=== PATIENT | female | born 1945 | race Caucasian/White ===

== ENCOUNTER 2017-06-12 08:13 | Emergency (ER) | payer MEDICARE ==
[~2017-06-12] VITALS: Ht 160 cm; Wt 80.0 kg
[2017-06-12] MEDS ORDERED: NAPR220C2 PO (08:27)
[2017-06-12] MEDS ORDERED: GLUC1CAP48 PO (08:27)
[2017-06-12] MEDS ORDERED: HYDR-882 PO (08:27)
[2017-06-12] MEDS ORDERED: ASPI-496 PO (08:27)
[2017-06-12] MEDS ORDERED: POTA20TA6 PO (08:27)
[2017-06-12] MEDS ORDERED: LOSA1TAB25 PO (08:27)
[2017-06-12] MEDS ORDERED: SIMV5TAB5 PO (08:27)
[2017-06-12] MEDS ORDERED: DOCU-180 PO (08:27)
[2017-06-12 09:33] LABS: HEMATOCRIT 47.8 % (34.6-47.8); HEMOGLOBIN 16.3 g/dL (11.7-16.4); WHITE BLOOD COUNT 7.6 x10^3/uL (3.4-10)
[2017-06-12 09:47] LABS: ASPARTATE AMINO TRANSFERASE 17 U/L (15-37); BLOOD UREA NITROGEN 31 mg/dL (7-18)
[2017-06-12 09:53] LABS: IS PT STATUS REG ER OR PRE ER? YES
[2017-06-12] MEDS ORDERED: HYDROmorphone 1 MG/ML, 1ML ONE (10:44)
[2017-06-12] MEDS ORDERED: ONDANSETRON ODT 4 MG ONE (10:44)
[2017-06-12 10:47] VITALS: BP 134/71
[2017-06-12] MEDS ORDERED: ONDANSETRON ODT 4 MG PO ONE (11:00)
[2017-06-12] MEDS ORDERED: HYDROmorphone 1 MG/ML, 1ML IM ONE (11:00)
== END 2017-06-12 12:01 | disposition home or self-care (01) ==
LOC: ED 08:37
DX: S29.011A Strain of muscle and tendon of front wall of thorax, initial encounter (principal); M94.0 Chondrocostal junction syndrome [Tietze]; I10 Essential (primary) hypertension; E78.00 Pure hypercholesterolemia, unspecified; F17.200 Nicotine dependence, unspecified, uncomplicated; X58.XXXA Exposure to other specified factors, initial encounter; Y93.89 Activity, other specified; Y92.89 Other specified places as the place of occurrence of the external cause; Y99.8 Other external cause status
CPT/HCPCS: 36415; 71020; 80053; 84484; 85025; 93005; 99285